=== PATIENT | male | born 1935 | race Caucasian/White ===

== ENCOUNTER 2016-09-14 09:57 | Emergency (ER) | payer OTHER ==
[~2016-09-14] VITALS: Ht 160 cm; Wt 63.5 kg
--- NOTE | 2016-09-14 11:07 | ED GENERAL ADULT ---
History of Present Illness General Chief Complaint: General Adult Stated Complaint: LETHARGIC FOR A FEW DAYS Source: patient, family Exam Limitations: no limitations Allergies Coded Allergies: NO KNOWN ALLERGIES (03/14/11) Reconcile Medications Amlodipine Besylate 5 MG TABLET 1 TAB PO DAILY BP (Reported) Cyanocobalamin (Vitamin B-12) (Vitamin B-12) 500 MCG TABLET 1 TAB PO DAILY SUPPLEMENT (Reported) Ergocalciferol (Vitamin D2) (Vitamin D2) 50,000 UNIT CAPSULE 1 CAP PO QTUES SUPPLEMENT (Reported) Ferrous Sulfate (IRON) 325 MG (65 MG IRON) TABLET 1 TAB PO DAILY SUPPLEMENT ( Reported) Folic Acid 0.4 MG TABLET 1 TAB PO DAILY SUPPLEMENT (Reported) Simvastatin (Simvastatin*) 40 MG TABLET 1 TAB PO QPM CHOLESTEROL (Reported) Sucralfate 1 GRAM TABLET 1 TAB PO BID GI (Reported) Triage Note: COMPLAINS OF 3 DAYS OF NO APPETITE UNABLE TO STAY AWAKE. PT WAS SENT BY DR ROMAN FOR BLOOD WORK. QUESTION ANEMIA Triage Nurses Notes Reviewed? 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 Anorexia for the past 4-5 days, patient states he just does not feel hungry, denies abdominal pain, abdominal distention, nausea, vomiting, diarrhea, constipation (last BM this morning), hematochezia, melena. Associated fatigue, diffuse weakness, states the patient spends most the day sleeping. She does not likely he was breathing this morning, unsure if his breathing looks more fast or labored, but "looks different". Denies fevers, chills, rash, chest pain, cough, shortness of breath, urinary symptoms, headache, neck stiffness, or focal neurologic symptoms. (STEVEN DAVIDSON,JASPER) Vital Signs & Intake/Output Vital Signs & Intake/Output Vital Signs Date Time Temp Pulse Resp B/P B/P Pulse O2 O2 Flow FiO2 Mean Ox Delivery Rate 09/14 1603 98.5 75 18 117/56 100 Room Air 09/14 1254 97.8 78 18 121/61 100 Room Air 09/14 1146 Room Air 09/14 1010 98.0 82 20 128/70 93 Room Air Past History Travel History Traveled to [place] past 21 day No Medical History Any Pertinent Medical History? see below for history Neurological: NONE EENT: NONE Cardiovascular: NONE Respiratory: NONE Gastrointestinal: NONE Hepatic: NONE Renal: NONE Musculoskeletal: NONE Psychiatric: NONE Endocrine: NONE Blood Disorders: NONE Cancer(s): STOMACH/LIVER Pneumonia Vaccine: 05/28/08 Influenza Vaccine: 02/24/10 Surgical History Surgical History: non-contributory Psychosocial History Who do you live with Spouse What is your primary language Wallisian Tobacco Use: Never used ETOH Use: denies use Illicit Drug Use: denies illicit drug use Family History Hx Contributory? No (JASPER HARRIS MD) Review of Systems Review of Systems Constitutional: Reports: see HPI, malaise, weakness. EENTM: Reports: no symptoms. Respiratory: Reports: no symptoms. Cardiovascular: Reports: no symptoms. GI: Reports: no symptoms. Genitourinary: Reports: no symptoms. Musculoskeletal: Reports: no symptoms. Skin: Reports: no symptoms. Neurological/Psychological: Reports: weakness. Hematologic/Endocrine: Reports: no symptoms. Immunologic/Allergic: Reports: no symptoms. All Other Systems: Reviewed and Negative (JASPER HARRIS MD) Physical Exam Physical Exam General Appearance: no apparent distress, alert, awake Head: atraumatic, normal appearance Eyes: Bilateral: normal appearance. Ears, Nose, Throat: normal pharynx, normal ENT inspection Neck: normal inspection, full range of motion Respiratory: normal breath sounds, no respiratory distress, lungs clear Cardiovascular: regular rate/rhythm, normal peripheral pulses Gastrointestinal: normal bowel sounds, non-tender Back: normal inspection, normal range of motion Core Measures ACS in differential dx? No CVA/TIA Diagnosis: No Severe Sepsis Present: No Septic Shock Present: No (JASPER HARRIS MD) Progress Differential Diagnoses I considered the following diagnoses in my evaluation of the patient: [ Anemia, infection, metabolic arrangement, progression of malignancy] Initial ED EKG: normal sinus rhythm (JASPER HARRIS MD) Plan of Care: Orders Procedure Date/time Status Regular Diet 09/14 D Active BASIC METABOLIC PANEL 09/14 1509 Complete TROPONIN LEVEL 09/14 1120 Complete LIPASE 09/14 1120 Complete LACTIC ACID 09/14 1120 Complete COMPREHENSIVE METABOLIC PANEL 09/14 1120 Complete CBC WITHOUT DIFFERENTIAL 09/14 1120 Complete TYPE & SCREEN (NOT X-MATCH) 09/14 1120 Complete Laboratory Tests 09/14/16 1552: Anion Gap 13, Estimated GFR 27 L, BUN/Creatinine Ratio 14.8, Glucose 123 H, Calcium 7.4 L 09/14/16 1144: Anion Gap 15, Estimated GFR 25 L, BUN/Creatinine Ratio 14.0, Glucose 117 H, Lactic Acid 1.0, Calcium 8.4, Total Bilirubin 0.6, AST 21, ALT 32, Alkaline Phosphatase 144 H, Troponin I < 0.01, Total Protein 6.6, Albumin 3.5, Globulin 3.1, Albumin/Globulin Ratio 1.1, Lipase 112, CBC w Diff NO MAN DIFF REQ, RBC 4.19 L, MCV 77.7 L, MCH 25.9 L, RDW 14.6 H, MPV 6.1 L, Gran % 80.0 H, Lymphocytes % 7.3 L, Monocytes % 12.1 H, Eosinophils % 0.2, Basophils % 0.4, Absolute Granulocytes 5.2, Absolute Lymphocytes 0.5 L, Absolute Monocytes 0.8 H, Absolute Eosinophils 0, Absolute Basophils 0, PUBS MCHC 33.3 Physician MDM: 81 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 VSS, physical exam as above. DDx: Anemia, infection, progression malignancy, metabolic arrangement, less likely ACS, low concern for surgical abdominal pathology given totally benign abdominal exam. EKG sinus rhythm, nonischemic, troponin negative. CMP with worsening creatinine elevation to 2.5, KAREEM, mild alkaline phosphatase elevation. CBC with hemoglobin 10.8 ( around baseline). Call to discuss admission for dehydration, anorexia, and KAREEM with patient's primary care doctor, declined admission, will see the patient for close follow-up Saturday. Patient given 2 L normal saline, improvement and creatinine from 2.5-2.3. Patient prefers not to be admitted and primary care doctor does not feel KAREEM warrants admission, given patient hemodynamically stable and well-appearing table for discharge with outpatient follow-up. Discharge with strict return precautions, encouraged to drink as much fluids as possible, follow-up with PMD (Dr. Juan) and oncologist (Dr. Steele) scheduled for Saturday. The plan of care was discussed with the patient and his who expressed agreement and understanding. (STEVEN DAVIDSON,JASPER) Departure Departure Disposition: HOME OR SELF CARE Condition: Stable Clinical Impression Primary Impression: Dehydration Secondary Impressions: KAREEM (acute kidney injury) Referrals: HERNANDEZ DAVIDSON,JULY Jacinto (PCP/Family) Additional Instructions: Drink plenty of fluids. Follow up with Dr. Juan in the next 2-3 days. Follow up with Dr. Roman in the next 2-3 days. Return to the emergency department for any new, worsening, or concerning symptoms. Departure Forms: Customer Survey General Discharge Information (STEVEN DAVIDSON,JASPER) PA/MARKETING AND DEVELOPMENT COORDINATOR Co-Sign Statement Statement: ED Attending supervision documentation- [X] I saw and evaluated the patient. I have also reviewed all the pertinent lab results and diagnostic results. I agree with the findings and the plan of care as documented in the PA's/MARKETING AND DEVELOPMENT COORDINATOR's documentation. [X] I have reviewed the ED Record and agree with the PA's/MARKETING AND DEVELOPMENT COORDINATOR's documentation. [] Additions or exceptions (if any) to the PAs/MARKETING AND DEVELOPMENT COORDINATOR's note and plan are summarized below: [] (PATIENCE DAVIDSON,RACHEL) Critical Care Note Critical Care Note Critical Care Time: non-applicable (STEVEN DAVIDSON,JASPER)
--- NOTE | 2016-09-14 11:45 | RADIOLOGY REPORT ---
EXAMINATION: XR CHEST CLINICAL INFORMATION: Pneumonia, tachypnea COMPARISON: 02/20/2016 and earlier TECHNIQUE: 2 views of the chest were obtained. FINDINGS: Low lung volumes. No focal consolidation or mass. Normal pulmonary vascularity. No pleural effusion or pneumothorax. Normal heart size. Mildly tortuous aorta. Multilevel degenerative changes of the thoracic spine. Retrocardiac opacity likely from the previously seen hiatal hernia. IMPRESSION: No acute pulmonary disease
[2016-09-14 11:52] LABS: ABSOLUTE BASOPHIL COUNT 0 /CUMM (0.0-0.2); ABSOLUTE EOSINOPHIL COUNT 0 /CUMM (0.0-0.7); ABSOLUTE GRANULOCYTE CT 5.2 /CUMM (1.4-6.5); ABSOLUTE LYMPH COUNT 0.5 /CUMM (1.2-3.4); ABSOLUTE MONOCYTE COUNT 0.8 /CUMM (0.10-0.60); BASOPHIL % 0.4 % (0.0-2.0); EOSINOPHIL % 0.2 % (0-5); HEMATOCRIT 32.5 % (42-52); MEAN CORPUSCULAR HGB 25.9 PG (27.0-31.0); MEAN CORPUSCULAR HGB CONC 33.3 G/DL (33.0-37.0); MEAN CORPUSCULAR VOLUME 77.7 FL (80.0-94.0); MEAN PLATELET VOLUME 6.1 FL (7.4-10.4); PLATELET COUNT 331 /CUMM (130-400); RBC DISTRIBUTION WIDTH 14.6 % (11.5-14.5); RED BLOOD CELL CT 4.19 /CUMM (4.70-6.10); WHITE BLOOD CELL COUNT 6.5 /CUMM (4.8-10.8)
[2016-09-14 16:03] VITALS: BP 117/56
[2016-09-14] MEDS ORDERED: SUCRALFATE1 G1 PO (17:00)
[2016-09-14] MEDS ORDERED: SIMVASTATIN40 M1 PO (17:00)
[2016-09-14] MEDS ORDERED: AMLODIPINE BESYL5 M1 PO (17:00)
[2016-09-14] MEDS ORDERED: IRON325 M3 PO (17:01)
[2016-09-14] MEDS ORDERED: VITAMIN B-12500 MC2 PO (17:01)
[2016-09-14] MEDS ORDERED: FOLIC ACID0.4 M1 PO (17:02)
[2016-09-14] MEDS ORDERED: VITAMIN D250000 UNIT PO (17:02)
== END 2016-09-14 17:16 ==
LOC: ERH 09:57
PROVIDERS: Student in an Organized Health Care Education/Training Program
DX: E86.0 Dehydration (principal); N17.9 Acute kidney failure, unspecified; R53.1 Weakness